=== PATIENT | female | born 1975 | race Caucasian/White ===

== ENCOUNTER 2017-02-11 16:27 | Outpatient (CLI) | payer MEDICARE ==
[2017-02-11 20:09] LABS: Anion Gap 15 mmol/L (10-20); BUN (Urea Nitrogen) 13 mg/dL (7.0-18.7); Calc. Creatinine Clearance 0 mL/min (70-130); Calcium 9.4 mg/dL (7.8-10.44); Carbon Dioxide 23 mmol/L (22-29); Chloride 106 mmol/L (98-107); Estimated GFR-MDRD 63
[2017-02-11 20:11] LABS: #Basophils 0.1 thou/uL (0.0-0.2); #Eosinphils 0.1 thou/uL (0.0-0.7); #Lymphocytes 2.4 thou/uL (1.20-3.40); #Monocytes 1.1 thou/uL (0.11-0.59); #Neutrophils 10.6 thou/uL (1.40-6.50); %Basophils 0.5 % (0.0-1.0); %Eosinophils 0.8 % (0.0-10.0); %Lymphocytes 16.8 % (21.0-51.0); %Monocytes 7.7 % (0.0-10.0); Mean Platelet Volume 8.1 fL (7.4-10.4); Red Blood Cell (RBC) Count 4.34 mill/uL (4.20-5.40); White Blood Cell (WBC) Count 14.2 thou/uL (4.8-10.8)
--- NOTE | 2017-02-12 10:01 | EKG ---
Test Reason : PREOP Blood Pressure : / mmHG Vent. Rate : 073 BPM Atrial Rate : 073 BPM P-R Int : 114 ms QRS Dur : 072 ms QT Int : 420 ms P-R-T Axes : 065 068 030 degrees QTc Int : 462 ms Sinus rhythm with Premature atrial complexes Otherwise normal ECG No previous ECGs available Confirmed by BERNADETTE ALLEN ([id number]) on 02/12/2017 10:01:21 AM Referred By: AL Confirmed By:BERNADETTE ALLEN
== END 2017-02-11 16:28 | disposition home or self-care (01) ==
LOC: LABBT 16:27
PROVIDERS: ATTEND Orthopaedic Surgery
DX: Z01.818 Encounter for other preprocedural examination (principal); M23.92 Unspecified internal derangement of left knee
CPT/HCPCS: 80048; 84703; 85025; 93005; 93010

== ENCOUNTER 2017-02-13 08:54 | Day surgery (SDC) | payer MEDICARE ==
[2017-02-11 16:49] VITALS: BMI 24.3
[2017-02-13] MEDS ORDERED: Midazolam HCl 2 mg/2 ml Vial ONE ×2 (10:21→11:02)
[2017-02-13] MEDS ORDERED: Fentanyl 100 MCG/2 ML VIAL ONE ×2 (10:21→13:53)
[2017-02-13] MEDS ORDERED: Diprivan 20 ML ONE (10:42)
[2017-02-13] MEDS ORDERED: Ketorolac Tromethamine 30 MG/ML VIAL ONE (12:10)
[2017-02-13] MEDS ORDERED: Ondansetron HCl/PF 4 MG/2 ML Vial ONE (12:10)
[2017-02-13] MEDS ORDERED: Dexamethasone 20 MG/5 ML VIAL ONE (12:10)
[2017-02-13] MEDS ORDERED: Lidocaine 1% PF 5 ML VIAL ONE (12:10)
[2017-02-13] MEDS ORDERED: diphenhydrAMINE HCl 50 MG/ML 1 ML VIAL ONE (12:10)
[2017-02-13] MEDS ORDERED: Metoclopramide HCl 10 MG/2 ML VIAL ONE (12:10)
[2017-02-13] MEDS ORDERED: Propofol 200 MG/20 ML VIAL ONE (12:10)
--- NOTE | 2017-02-13 15:33 | OP ---
DATE OF PROCEDURE: 02/13/2017 PREOPERATIVE DIAGNOSIS: Left knee pain, cause unknown. 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 SURGERY PERFORMED: Left knee arthroscopy, debridement and shaving of unstable chondral flaps. SURGEON: Reginald Blancas M.D. TEACHER ASSISTANT: None. BLOOD LOSS: Minimal. COMPLICATIONS: None. ANESTHESIA: She had general anesthetic as well as a local knee block. DISPOSITION: She did go to recovery room in stable condition. INDICATIONS: Ms. Christian is an active 41-year-old who continued to have significant pain in her knee despite nonoperative treatment and what appeared to be a normal MR scan. At this time, she opt ed to have a diagnostic arthroscopy performed. DESCRIPTION OF PROCEDURE: After all appropriate consent forms were explained and signed, she was ta lisa to the operating room and at this time was given general anesthetic. Once anesthesia was approp riate, the tourniquet was placed on the left thigh and the leg was prepped and draped in the standar d surgical fashion. Prior to this, the leg was placed in an arthroscopic leg jane. The limb was then exsanguinated and tourniquet taken up to 300 mmHg. An inferolateral portal was established and the scope was placed into the knee joint. A needle localization technique was then used to make a medial working portal. Diagnostic arthroscopy commenced in the notch. The ACL and PCL are probed a nd found to be intact. The medial compartment showed some fibrillation in tibial plateau, otherwise the femoral condyle and this area looked good, as well as the medial meniscus. Lateral compartment was also found to be within normal limits. At this time, we away some of the fat pad and too k the knee through range of motion and an area on the medial femoral condyle was noted and upon prob ing, it was found to have a large unstable chondral flap. This was taken down with the shaver back to a stable base. Lateral femoral condyle was in good condition. The trochlea then had a central w ear area with small unstable chondral flap and this again was taken down with the shaver back to a s table base. The gutters were swept through and no loose bodies were noted. Patellofemoral joint, o therwise showed the patella to be in excellent condition. At this time, the scope was removed, the knee was drained. Portals were closed with simple nylon stitch. A bulky sterile dressing was appli ed and the tourniquet let down. Toes pinked up nicely. The patient was awakened and she was taken to the recovery room in stable condition. All counts were correct at the end of the case and she re ceived preoperative IV antibiotics.
== END 2017-02-13 16:15 | disposition home or self-care (01) ==
LOC: SDC 08:54
PROVIDERS: ATTEND Orthopaedic Surgery
PROC: 0SCD4ZZ Extirpation of Matter from Left Knee Joint, Percutaneous Endoscopic Approach (ICD-10-PCS; principal; 2017-02-13)
DX: M76.52 Patellar tendinitis, left knee (principal); M94.262 Chondromalacia, left knee; M24.10 Other articular cartilage disorders, unspecified site; I10 Essential (primary) hypertension; I49.3 Ventricular premature depolarization; I49.1 Atrial premature depolarization; J30.2 Other seasonal allergic rhinitis; F41.9 Anxiety disorder, unspecified; Z79.899 Other long term (current) drug therapy; Z88.2 Allergy status to sulfonamides; Z91.013 Allergy to seafood; Z91.041 Radiographic dye allergy status; Z95.818 Presence of other cardiac implants and grafts; Z90.79 Acquired absence of other genital organ(s); Z87.59 Personal history of other complications of pregnancy, childbirth and the puerperium
CPT/HCPCS: 29877; 96374 ×2; 97116; G8978; G8979; G8980; J0131; J1100; J1200; J1885; J2001; J2250; J2270; J2405; J2704; J2765; J3010

== ENCOUNTER 2019-02-13 12:38 | Outpatient (CLI) | payer MEDICARE ==
--- NOTE | 2019-02-13 14:47 | MRI ---
Thoracic spine MRI without contrast: 02/13/2019 COMPARISON: None HISTORY: Thoracic radiculopathy TECHNIQUE: Multiplanar multisequence MR imaging of the thoracic spine provided without contrast FINDINGS: The sagittal STIR imaging demonstrates no focal area of osseous marrow edema. The thoracic vertebral body height and alignment appears normal. There is no focal area of abnormal s ignal intensity identified within the thoracic cord. There is no central canal stenosis at any level within the thoracic spine. There is no significant neural foraminal stenosis on either side at any level within the thoracic spi ne. IMPRESSION: Unremarkable thoracic spine MRI.
--- NOTE | 2019-02-13 14:53 | MRI ---
MRI of the lumbar spine without contrast: 02/13/2019 COMPARISON: None HISTORY: Back pain, pain radiating through the inguinal regions and in her legs to the feet, bilatera l lower extremity radiculopathy TECHNIQUE: Multiplanar multisequence MR imaging of the lumbar spine is obtained without contrast FINDINGS: The sagittal STIR imaging demonstrates no focal area of osseous marrow edema. On the basis of 5 lumbar type vertebral bodies, conus medullaris terminates at the L1 level. T12-L1: Intervertebral disc height and signal intensity is within normal limits with no significant c entral canal or neural foraminal stenosis. L1-2: Intervertebral disc height and signal intensity within normal limits with no significant centra l canal or neural foraminal stenosis. L2-3: There is a small disc protrusion in the left foraminal region. No significant central canal or neural foraminal stenosis. Mild anterior osteophyte formation. There is partial disc desiccation. L3-4: There is disc desiccation. There is a small foraminal disc protrusion on the left. No significa nt central canal or neural foraminal stenosis. L4-5: Mild bilateral facet hypertrophy. No significant central canal or neural foraminal stenosis. In tervertebral disc height and signal intensity appears within normal limits. L5-S1: No significant central canal or neural foraminal stenosis. The imaged retroperitoneal structures demonstrate no acute findings. IMPRESSION: Relatively mild degenerative change within the lumbar spine as detailed above. There is n o high-grade/severe central canal or neural foraminal stenosis at any level within the lumbar spine.
== END 2019-02-13 12:39 | disposition home or self-care (01) ==
LOC: TBSIIMAG 12:38
PROVIDERS: ATTEND Anesthesiology
DX: M54.16 Radiculopathy, lumbar region (principal); M54.14 Radiculopathy, thoracic region; M47.26 Other spondylosis with radiculopathy, lumbar region
CPT/HCPCS: 72146; 72148